=== PATIENT | female | born 1945 | race Caucasian/White ===

== ENCOUNTER → 2023-04-28 15:35 | Outpatient (REF) | payer MEDICARE, BC, SELFPAY | LOC: RAD 15:35 | PROVIDERS: ATTENDING PHYSICIAN Family Medicine | DX: S22.42XA Multiple fractures of ribs, left side, initial encounter for closed fracture (principal) | CPT/HCPCS: 71101 ==

== ENCOUNTER → 2023-11-15 07:40 | Outpatient (REF) | payer MEDICARE, BC, SELFPAY | LOC: RAD 07:40 | PROVIDERS: ATTENDING PHYSICIAN Physician Assistant Medical; FAMILY PHYSICIAN Family Medicine | DX: S40.011A Contusion of right shoulder, initial encounter (principal) | CPT/HCPCS: 73030; 73502 ==

== ENCOUNTER → 2023-12-22 10:50 | Outpatient (REF) | payer MEDICARE, BC, SELFPAY | LOC: MRI 3T 10:50 | PROVIDERS: ATTENDING PHYSICIAN Orthopaedic Surgery; FAMILY PHYSICIAN Family Medicine | DX: M25.511 Pain in right shoulder (principal) | CPT/HCPCS: 73221 ==

== ENCOUNTER → 2025-03-07 14:09 | Outpatient (REF) | payer MEDICARE, BC, SELFPAY | LOC: HWRAD 14:09 | PROVIDERS: ATTENDING PHYSICIAN Family Medicine | DX: R42 Dizziness and giddiness (principal) | CPT/HCPCS: 70450 ==